=== PATIENT | male | born 1990 | race Caucasian/White ===

== ENCOUNTER 2022-01-04 21:06 | Emergency (ER) | payer OTHER ==
[2022-01-04] MEDS ORDERED: Lidocaine 1% 5 ML VIAL INJECT ONE (21:14)
== END 2022-01-04 21:48 | disposition home or self-care (01) ==
LOC: MERGE 21:06 → VM.ED 21:06
DX: S61.210A Laceration without foreign body of right index finger without damage to nail, initial encounter (principal); Z87.891 Personal history of nicotine dependence; W26.8XXA Contact with other sharp object(s), not elsewhere classified, initial encounter
CPT/HCPCS: 12001; 99282; 99283

== ENCOUNTER 2022-09-01 20:57 | Emergency (ER) | payer OTHER | END 2022-09-01 21:10 | LOC: VM.ED 20:57 | DX: Z53.21 Procedure and treatment not carried out due to patient leaving prior to being seen by health care provider (principal) ==